=== PATIENT | female | born 1975 | race Caucasian/White ===

== ENCOUNTER → 2019-06-26 12:55 | Outpatient (BNVA) | payer MEDICARE, MEDICAID, SELFPAY | PROVIDERS: Visit Provider Nurse Practitioner Psychiatric/Mental Health | DX: F41.1 Generalized anxiety disorder (principal); F33.1 Major depressive disorder, recurrent, moderate | CPT/HCPCS: 99213 ==

== ENCOUNTER → 2019-07-05 12:45 | Outpatient (BNVA) | payer MEDICARE, MEDICAID, SELFPAY | PROVIDERS: Family Provider Nurse Practitioner Family; PCP Nurse Practitioner Family; Visit Provider Nurse Practitioner | DX: M54.16 Radiculopathy, lumbar region (principal); M25.551 Pain in right hip; M25.552 Pain in left hip; M54.2 Cervicalgia; Z79.891 Long term (current) use of opiate analgesic | CPT/HCPCS: 99213; 99214 ==

== ENCOUNTER 2019-08-02 08:25 | Outpatient (CLI) | payer MEDICARE, MEDICAID, SELFPAY ==
[2019-08-02 08:58] LABS: Glucose Fasting 58 mg/dL (74-109)
[2019-08-02 10:28] LABS: Glucose 1 Hour 75 mg/dL
[2019-08-02 11:33] LABS: Glucose 2 Hour 76 mg/dL
[2019-08-02 12:43] LABS: Glucose 3 Hour 93 mg/dL
== END 2019-08-02 08:26 | disposition home or self-care (01) ==
LOC: LAB 08:30
PROVIDERS: Family Provider Nurse Practitioner Family; PCP Nurse Practitioner Family; Visit Provider Nurse Practitioner Family
DX: R53.83 Other fatigue (principal)
CPT/HCPCS: 36415; 82951; 82952

== ENCOUNTER → 2019-08-07 13:08 | Outpatient (BNVA) | payer MEDICARE, MEDICAID, SELFPAY | PROVIDERS: Family Provider Nurse Practitioner Family; PCP Nurse Practitioner Family; Visit Provider Nurse Practitioner Psychiatric/Mental Health | DX: F41.1 Generalized anxiety disorder (principal); F33.1 Major depressive disorder, recurrent, moderate | CPT/HCPCS: 99213 ==

== ENCOUNTER 2019-08-23 20:00 | Outpatient (CLI) | payer MEDICARE, MEDICAID, SELFPAY | END 2019-08-23 20:01 | disposition home or self-care (01) | LOC: SLEEP 08-24 10:47 | PROVIDERS: Family Provider Nurse Practitioner Family; PCP Nurse Practitioner Family; Visit Provider Nurse Practitioner Family | DX: G47.10 Hypersomnia, unspecified (principal); R53.83 Other fatigue | CPT/HCPCS: 95810 ==

== ENCOUNTER → 2019-08-30 12:49 | Outpatient (BNVA) | payer MEDICARE, MEDICAID, SELFPAY | PROVIDERS: Family Provider Nurse Practitioner Family; PCP Nurse Practitioner Family; Visit Provider Nurse Practitioner | DX: G89.29 Other chronic pain (principal); M54.16 Radiculopathy, lumbar region; M54.2 Cervicalgia; Z79.891 Long term (current) use of opiate analgesic | CPT/HCPCS: 99213; 99214 ==

== ENCOUNTER → 2019-11-06 08:18 | Outpatient (BNVA) | payer MEDICARE, MEDICAID, SELFPAY | PROVIDERS: Family Provider Nurse Practitioner Family; PCP Nurse Practitioner Family; Visit Provider Nurse Practitioner Psychiatric/Mental Health | DX: F41.1 Generalized anxiety disorder (principal); F33.1 Major depressive disorder, recurrent, moderate | CPT/HCPCS: 99213 ==

== ENCOUNTER → 2019-11-07 13:13 | Outpatient (BNVA) | payer MEDICARE, SELFPAY | PROVIDERS: Family Provider Nurse Practitioner Family; PCP Nurse Practitioner Family; Visit Provider Nurse Practitioner | DX: M54.2 Cervicalgia (principal); M54.16 Radiculopathy, lumbar region; M54.9 Dorsalgia, unspecified; Z79.891 Long term (current) use of opiate analgesic | CPT/HCPCS: 99213 ==

== ENCOUNTER 2019-11-15 15:08 | Outpatient (CLI) | payer MEDICARE, MEDICAID, SELFPAY ==
--- NOTE | 2019-11-15 15:13 | XR_ITS ---
WS: [id number] ANKLE RIGHT TECHNIQUE: 3 views of the right ankle CLINICAL INFORMATION: INJURY OF RIGHT ANKLE COMPARISON: None. FINDINGS: Normal ankle mortise. Talar dome is normal. No visualized fractures. Mild soft tissue edema. XR/XR ankle RT min 3V* [id number] IMPRESSION: Mild soft tissue edema. No visualized fractures.
== END 2019-11-15 15:09 | disposition home or self-care (01) ==
LOC: RADWPI 15:12
PROVIDERS: Family Provider Nurse Practitioner Family; PCP Nurse Practitioner Family; Visit Provider Nurse Practitioner Family
DX: S99.911A Unspecified injury of right ankle, initial encounter (principal); X58.XXXA Exposure to other specified factors, initial encounter; R60.9 Edema, unspecified
CPT/HCPCS: 73610

== ENCOUNTER → 2019-12-26 12:50 | Outpatient (BNVA) | payer MEDICARE, MEDICAID, SELFPAY | PROVIDERS: Family Provider Nurse Practitioner Family; PCP Nurse Practitioner Family; Visit Provider Nurse Practitioner | DX: G89.29 Other chronic pain (principal); M54.16 Radiculopathy, lumbar region; M54.9 Dorsalgia, unspecified; M54.2 Cervicalgia; Z79.891 Long term (current) use of opiate analgesic | CPT/HCPCS: 99213 ==

== ENCOUNTER → 2020-02-05 14:50 | Outpatient (BNVA) | payer MEDICARE, MEDICAID, SELFPAY | PROVIDERS: Family Provider Nurse Practitioner Family; PCP Nurse Practitioner Family; Visit Provider Podiatrist Foot & Ankle Surgery | DX: M25.579 Pain in unspecified ankle and joints of unspecified foot (principal) | CPT/HCPCS: 73610 ==

== ENCOUNTER → 2020-02-06 09:17 | Outpatient (BNVA) | payer MEDICARE, MEDICAID, SELFPAY | PROVIDERS: Family Provider Nurse Practitioner Family; PCP Nurse Practitioner Family; Visit Provider Nurse Practitioner Psychiatric/Mental Health | DX: F33.1 Major depressive disorder, recurrent, moderate (principal); F41.1 Generalized anxiety disorder | CPT/HCPCS: 99213 ==

== ENCOUNTER → 2020-03-08 13:05 | Outpatient (BNVA) | payer MEDICARE, MEDICAID, SELFPAY | PROVIDERS: Family Provider Nurse Practitioner Family; PCP Nurse Practitioner Family; Visit Provider Anesthesiology | DX: G89.29 Other chronic pain (principal); M54.41 Lumbago with sciatica, right side; M54.16 Radiculopathy, lumbar region; M54.9 Dorsalgia, unspecified; M54.2 Cervicalgia; G43.809 Other migraine, not intractable, without status migrainosus; Z79.891 Long term (current) use of opiate analgesic | CPT/HCPCS: 99214 ==

== ENCOUNTER 2020-04-02 09:43 | Outpatient (CLI) | payer MEDICARE, MEDICAID, SELFPAY ==
--- NOTE | 2020-04-02 09:53 | USCV_ITS ---
Josiane Briones Age: 45 Gender: F : 1975 Exam Date: 04/02/2020 10:28 Ordering Phys: Felipe Hill MD (Andy) ([email or web address]) Technologist: Pamella Johnson [place] [facility] [place]: HISTORY: Lower extremity pain. PROCEDURES: Bilateral duplex Venous Insufficiency study of the Deep and Superficial systems was carried out according to normal protocol with the patient in supine positon for deep system and dependent position for the superficial system. FINDINGS: All deep veins demonstrated compressibility without evidence of intraluminal thrombus or increased echogenicity. Reflux noted in Right SSV Prox and Mid. Veins appear very superficial. Reflux noted in Left GSV Prox through below knee. This vein appears too superficial as well. CONCLUSIONS 1. No evidence of DVT in the above-mentioned identifiable veins. 2. On the right side, significant venous reflux of greater than 500 ms (606 and 656 ms particularly)was noted at the proximal at the mid small saphenous vein segments. These venous segments were 0.74 and 0.44 cm in diameter and at a depth of more than 1 cm from the surface. 3. On the left side, significant venous reflux of greater than 500 ms (greater than 3000 ms) were noted throughout the greater saphenous vein segments excluding the saphenofemoral junction and just distal to the saphenofemoral junction. The venous segments were measuring 0.49 to 0.56 cm in diameter but were at a depth of less than 1 cm from the surface. 4. The venous dimensions, depth on the surface and reflux times are as mentioned above Dr Shubham Quinn MD [facility] (Electronically Signed) Final Date: 03 April 2020 20:38 S
== END 2020-04-02 09:44 | disposition home or self-care (01) ==
PROVIDERS: PCP Nurse Practitioner Family; Visit Provider Thoracic Surgery (Cardiothoracic Vascular Surgery)
DX: I83.93 Asymptomatic varicose veins of bilateral lower extremities (principal); M79.604 Pain in right leg; M79.605 Pain in left leg
CPT/HCPCS: 93970

== ENCOUNTER 2020-04-18 14:50 | Outpatient (CLI) | payer MEDICARE, MEDICAID, SELFPAY ==
--- NOTE | 2020-04-18 15:02 | MR_ITS ---
WS: [id number] MRI RIGHT ANKLE NONCONTRAST TECHNIQUE: Sagittal proton density, sagittal STIR, axial proton density, axial T1, axial T2 fat sat, coronal proton density, coronal proton density fat sat, coronal T2 fat sat. CLINICAL INFORMATION: tendonitis COMPARISON: None. FINDINGS: Normal anatomic alignment. Normal ankle mortise. Normal bone marrow signal in the talus and calcaneus . No evidence of avascular necrosis. Tiny amount of reactive edema at the tip of the lateral malleolu s. Soft tissue edema overlying the lateral malleolus. Normal medial malleolus. Edema along the peroneal tendon sheath. Tendinopathy involving the peroneal tendons with tenosynoviti s along the peroneus longus and brevis. Tendons are intact. Distal Achilles is normal. Normal extensor and flexor compartment tendons. Normal bone marrow signal in the tarsal bones. Base of the fifth metatarsal is normal. MR/MR ankle RT wo con* [id number] IMPRESSION: 1. Soft tissue edema about the lateral malleolus. Small amount of edema in the tip of the lateral malleolus. No avulsion fractures. 2. Tendinopathy and tenosynovitis involving the peroneal tendons with fluid al lorraine the peroneus longus and brevis. Tendons are intact. 3. Normal bone marrow signal in the talus and calcaneus. No evidence of avascu lar necrosis. 4. Normal bone marrow signal in the base of the fifth metatarsal. Normal bone marrow signal in the tarsal bones.
== END 2020-04-18 14:51 | disposition home or self-care (01) ==
LOC: RADSHAW 14:55
PROVIDERS: PCP Nurse Practitioner Family; Visit Provider Podiatrist Foot & Ankle Surgery
DX: M76.71 Peroneal tendinitis, right leg (principal); R60.0 Localized edema
CPT/HCPCS: 73721

== ENCOUNTER 2020-04-24 15:05 | Outpatient (CLI) | payer MEDICARE, MEDICAID, SELFPAY | END 2020-04-24 15:06 | disposition home or self-care (01) | LOC: SPT 15:06 | PROVIDERS: PCP Nurse Practitioner Family; Visit Provider Podiatrist Foot & Ankle Surgery | DX: Z46.89 Encounter for fitting and adjustment of other specified devices (principal); M76.71 Peroneal tendinitis, right leg | CPT/HCPCS: 97760; L4361 ==

== ENCOUNTER → 2020-05-09 13:44 | Outpatient (BNVA) | payer MEDICARE, MEDICAID, SELFPAY | PROVIDERS: Family Provider Nurse Practitioner Family; PCP Nurse Practitioner Family; Visit Provider Nurse Practitioner | DX: G89.29 Other chronic pain (principal); M54.41 Lumbago with sciatica, right side; M54.42 Lumbago with sciatica, left side; M54.16 Radiculopathy, lumbar region; M54.2 Cervicalgia; M54.9 Dorsalgia, unspecified; Z79.891 Long term (current) use of opiate analgesic | CPT/HCPCS: 99213 ==

== ENCOUNTER 2020-06-27 09:39 | Outpatient (CLI) | payer MEDICARE, MEDICAID, SELFPAY ==
--- NOTE | 2020-06-27 09:44 | MM_ITS ---
WS: [id number] BILATERAL DIGITAL SCREENING MAMMOGRAPHY WITH CAD CLINICAL INFORMATION: SCREENING HISTORY: Screening mammogram. No current complaints. COMPARISON: TECHNIQUE: Bilateral CC and MLO views. FINDINGS: The breasts are composed of heterogeneous fibroglandular density tissue, which can limit the detectio n of small underlying mass lesions. No suspicious mass, asymmetry, calcifications, or architectural d istortion. No evidence of malignancy. A few punctate calcifications. MM/[place] [id number] IMPRESSION: BI-RADS: 2-Benign FOLLOW UP: 1 Year Follow-up Recommend return to annual screening mammography.
== END 2020-06-27 09:40 | disposition home or self-care (01) ==
LOC: RADSHAW 09:43
PROVIDERS: Family Provider Nurse Practitioner Family; PCP Nurse Practitioner Family; Visit Provider Nurse Practitioner Family
DX: Z12.31 Encounter for screening mammogram for malignant neoplasm of breast (principal)
CPT/HCPCS: 77067

== ENCOUNTER → 2020-07-05 13:15 | Outpatient (BNVA) | payer MEDICARE, MEDICAID, SELFPAY | PROVIDERS: Family Provider Nurse Practitioner Family; PCP Nurse Practitioner Family; Visit Provider Nurse Practitioner | DX: G89.29 Other chronic pain (principal); M54.16 Radiculopathy, lumbar region; M54.9 Dorsalgia, unspecified; M54.2 Cervicalgia; Z79.891 Long term (current) use of opiate analgesic | CPT/HCPCS: 99214 ==

== ENCOUNTER → 2020-08-02 11:01 | Outpatient (BNVA) | payer MEDICARE, MEDICAID, SELFPAY | PROVIDERS: Family Provider Nurse Practitioner Family; PCP Nurse Practitioner Family; Visit Provider Nurse Practitioner | DX: G89.29 Other chronic pain (principal); M54.16 Radiculopathy, lumbar region; M54.2 Cervicalgia; G43.809 Other migraine, not intractable, without status migrainosus; M54.9 Dorsalgia, unspecified; Z79.891 Long term (current) use of opiate analgesic | CPT/HCPCS: 99212; 99214 ==

== ENCOUNTER → 2020-09-26 12:39 | Outpatient (BNVA) | payer MEDICARE, MEDICAID, SELFPAY | PROVIDERS: Family Provider Nurse Practitioner Family; PCP Nurse Practitioner Family; Visit Provider Anesthesiology | DX: G89.29 Other chronic pain (principal); M54.16 Radiculopathy, lumbar region; M54.2 Cervicalgia; M54.9 Dorsalgia, unspecified; Z79.891 Long term (current) use of opiate analgesic | CPT/HCPCS: 99214 ==

== ENCOUNTER → 2020-10-14 06:09 | Day surgery (SDC) | payer MEDICARE, MEDICAID, SELFPAY ==
[2020-10-14] MEDS: diazePAM 5 mg Tablet 10 MG PO (06:42)
--- NOTE | 2020-10-14 07:55 | PC.NURSE ---
CANCELLATION NOTE THE PATIENT ARRIVED TO [facility] AT 0635 FOR A SCHEDULED VENOUS ABLATION OF THE LEFT LOWER EXTREMITY. ULTRASOUND AND DR HUANG WERE NOTIFIED. Usama CHANG [employer], TOLD THIS NURSE THAT THE IMAGES WERE GOOD AND TO PROCEED WITH VALIUM AND DRAPING THE PATIENT. THE VALIUM 10MG PO WAS GIVEN AT 0642. UPON DRAPING, Usama CHANG [employer], TOLD THIS NURSE TO WAIT. HE WANTED DR HUANG TO VIEW THE ULTRASOUND. DR HUANG ARRIVED AT 0715. THE PATIENT'S VEINS IN THE LEFT LOWER EXTREMITY WERE TOO SUPERFICIAL TO THE SKIN'S SURFACE THEREFORE THE PROCEDURE WOULD BE CANCELLED. THE PATIENT WAS COUNSELED BY DR HUANG ON OTHER OPTIONS FOR THERAPY AND DR HUANG TOLD THE PATIENT THAT HE WOULD GATHER SOME BROCHURES WITH A VELCRO TYPE COMPRESSION STOCKING FOR HER TO TRIAL AND THAT HE WOULD MAIL THEM TO HER HOME. THE PATIENT'S ADDRESS WAS VERIFIED AND A COPY OF THAT ADDRESS WAS THEN GIVEN TO DR HUANG. THE PATIENT WAS DRESSED AND ESCORTED OUT AT 0732 TO HER TRANSPORTATION HOME.
== END ==
PROVIDERS: PCP Nurse Practitioner Family; Visit Provider Thoracic Surgery (Cardiothoracic Vascular Surgery)
DX: I83.90 Asymptomatic varicose veins of unspecified lower extremity (principal)
CPT/HCPCS: J7050

== ENCOUNTER → 2020-12-06 12:53 | Outpatient (BNVA) | payer MEDICARE, MEDICAID, SELFPAY | PROVIDERS: PCP Nurse Practitioner Family; Visit Provider Anesthesiology | DX: G89.29 Other chronic pain (principal); M54.41 Lumbago with sciatica, right side; M54.16 Radiculopathy, lumbar region; M54.2 Cervicalgia; M54.9 Dorsalgia, unspecified; G43.809 Other migraine, not intractable, without status migrainosus; Z79.891 Long term (current) use of opiate analgesic | CPT/HCPCS: 99214 ==

== ENCOUNTER → 2021-02-11 14:56 | Outpatient (BNVA) | payer MEDICARE, MEDICAID, SELFPAY | PROVIDERS: PCP Nurse Practitioner Family; Visit Provider Anesthesiology | DX: G89.29 Other chronic pain (principal); M54.16 Radiculopathy, lumbar region; M54.2 Cervicalgia; G43.809 Other migraine, not intractable, without status migrainosus; Z79.891 Long term (current) use of opiate analgesic; Z87.891 Personal history of nicotine dependence | CPT/HCPCS: 99214 ==

== ENCOUNTER → 2021-04-09 13:33 | Outpatient (BNVA) | payer MEDICARE, MEDICAID, SELFPAY | PROVIDERS: PCP Nurse Practitioner Family; Visit Provider Anesthesiology | DX: G89.29 Other chronic pain (principal); M54.16 Radiculopathy, lumbar region; M54.2 Cervicalgia; G43.809 Other migraine, not intractable, without status migrainosus; Z79.891 Long term (current) use of opiate analgesic | CPT/HCPCS: 99214 ==

== ENCOUNTER → 2021-06-11 12:47 | Outpatient (BNVA) | payer MEDICARE, MEDICAID, SELFPAY | PROVIDERS: PCP Nurse Practitioner Family; Visit Provider Anesthesiology | DX: G89.29 Other chronic pain (principal); M54.16 Radiculopathy, lumbar region; M54.2 Cervicalgia; G43.809 Other migraine, not intractable, without status migrainosus; Z79.891 Long term (current) use of opiate analgesic; Z87.891 Personal history of nicotine dependence | CPT/HCPCS: 99214 ==

== ENCOUNTER → 2021-07-07 08:49 | Outpatient (BNVA) | payer MEDICARE, MEDICAID, SELFPAY | PROVIDERS: PCP Nurse Practitioner Family; Visit Provider Nurse Practitioner Psychiatric/Mental Health | DX: F33.1 Major depressive disorder, recurrent, moderate (principal); F41.1 Generalized anxiety disorder | CPT/HCPCS: 90792 ==

== ENCOUNTER → 2021-09-29 07:21 | Outpatient (BNVA) | payer MEDICARE, MEDICAID, SELFPAY | PROVIDERS: PCP Nurse Practitioner Family; Visit Provider Nurse Practitioner Psychiatric/Mental Health | DX: F33.1 Major depressive disorder, recurrent, moderate (principal); F41.1 Generalized anxiety disorder; M54.16 Radiculopathy, lumbar region; G89.29 Other chronic pain; M54.2 Cervicalgia | CPT/HCPCS: 99214 ==

== ENCOUNTER 2023-01-19 11:43 | Outpatient (CLI) | payer MEDICARE, MEDICAID, SELFPAY ==
--- NOTE | 2023-01-19 11:50 | MM_ITS ---
WS: [id number] BILATERAL 3D TOMOSYNTHESIS DIGITAL SCREENING MAMMOGRAPHY WITH CAD CLINICAL INFORMATION: SCREENING HISTORY: Screening mammogram. No current complaints. COMPARISON: 2020 TECHNIQUE: Bilateral CC and MLO views. FINDINGS: The breasts are composed of heterogeneous fibroglandular density tissue, which can limit the detectio n of small underlying mass lesions. No suspicious mass, asymmetry, calcifications, or architectural d istortion. No evidence of malignancy. IMPRESSION: MM/[place] [id number] BI-RADS: 1-Negative FOLLOW UP: 1 Year Follow-up Recommend return to annual screening mammography.
== END 2023-01-19 11:44 | disposition home or self-care (01) ==
LOC: RAD 11:47 → MOBLMAM 11:49
PROVIDERS: PCP Nurse Practitioner Family; Visit Provider Nurse Practitioner Family
DX: Z12.31 Encounter for screening mammogram for malignant neoplasm of breast (principal)
CPT/HCPCS: 77063; 77067